=== PATIENT | male | born 1990 | race Caucasian/White ===

== ENCOUNTER 2019-01-28 21:28 | Emergency (ER) | payer OTHER ==
[~2019-01-28] VITALS: Ht 190.5 cm; Wt 86.4 kg
[2019-01-28 21:28] VITALS: BP 135/63
[2019-01-28] MEDS ORDERED: BACTRIM 160MG/800MG DS TAB PO ONE (22:30)
[2019-01-28] MEDS ORDERED: BACT800T5 PO (22:31)
== END 2019-01-28 22:39 | disposition home or self-care (01) ==
LOC: M ED 21:28
DX: S81.801A Unspecified open wound, right lower leg, initial encounter (principal); W16.332A Fall into other water striking wall causing other injury, initial encounter; Y92.828 Other wilderness area as the place of occurrence of the external cause; Y93.16 Activity, rowing, canoeing, kayaking, rafting and tubing; Y99.9 Unspecified external cause status; Z79.899 Other long term (current) drug therapy

== ENCOUNTER 2019-01-31 13:14 | Emergency (ER) | payer OTHER ==
[~2019-01-31] VITALS: Ht 182.9 cm; Wt 88.6 kg
[~2019-01-31 13:14] MED LIST: BACT800T5 PO
[2019-01-31] MEDS ORDERED: APAP500T10 PO (13:20)
[2019-01-31] MEDS ORDERED: IBUPROFEN 800 MG TAB PO ONE (13:45)
[2019-01-31 14:04] LABS: BASO % 0.1 % (0.0-1.0); EOS # 0.2 10^3/uL (0.0-0.50); EOS % 2.5 % (0.0-3.0); HEMATOCRIT 41.3 % (42.0-52.0); HEMOGLOBIN 14.3 g/dl (13.5-17.5); LYMPH # 0.4 10^3/uL (1.5-6.5); MEAN CORPUSCULAR HEMOGLOBIN 32.6 pg (27.0-33.0); MEAN CORPUSCULAR HGB CONC 34.6 g/dl (32.0-36.5); MEAN CORPUSCULAR VOLUME 94.1 fl (80.0-96.0); MONO # 0.7 10^3/uL (0.0-0.8); MONO % 8.7 % (0.0-5.0); NEUTROPHILS # 6.8 10^3/uL (1.8-7.7); NEUTROPHILS % 83.3 % (36.0-66.0); PLATELET COUNT, AUTOMATED 131 10^3/uL (150-450); RED BLOOD COUNT 4.39 10^6/uL (4.30-6.10); WHITE BLOOD COUNT 8.1 10^3/uL (4.0-10.0)
[2019-01-31 14:22] LABS: BLOOD UREA NITROGEN 8 MG/DL (7-18); C REACTIVE PROTEIN QUANTITATIV 3.47 MG/DL (0.00-0.30); CALCIUM LEVEL 8.8 MG/DL (8.5-10.1); CARBON DIOXIDE LEVEL 30 MEQ/L (21-32); CHLORIDE LEVEL 105 MEQ/L (98-107); CREATININE FOR GFR 1.25 MG/DL (0.70-1.30); GLOMERULAR FILTRATION RATE > 60.0 (>60); GLUCOSE, FASTING 102 MG/DL (70-100); POTASSIUM SERUM 3.9 MEQ/L (3.5-5.1); SODIUM LEVEL 139 MEQ/L (136-145)
[2019-01-31 14:52] LABS: ERYTHROCYTE SEDIMENTATION RATE 8 mm/hr (0-15)
[2019-01-31 15:45] VITALS: BP 128/65
[2019-01-31] MEDS ORDERED: LEVA750T7 PO (15:58)
== END 2019-01-31 16:05 | disposition home or self-care (01) ==
LOC: M ED 13:14
DX: R50.9 Fever, unspecified (principal); S80.12XD Contusion of left lower leg, subsequent encounter; S80.812D Abrasion, left lower leg, subsequent encounter; X58.XXXD Exposure to other specified factors, subsequent encounter; Y92.89 Other specified places as the place of occurrence of the external cause